=== PATIENT | male | born 1980 | race Caucasian/White ===

== ENCOUNTER 2022-04-26 01:25 | Emergency (ER) | payer OTHER ==
[~2022-04-26] VITALS: Ht 170.2 cm; Wt 61.2 kg
[2022-04-26 02:18] VITALS: BP 94/59
--- NOTE | 2022-04-26 02:20 | NUR ---
BIBS. PAIN & BURNING WHEN URINATING. REPORTS URINE CLOUDY AND FOUL SMELLING. PATIENT IS USING A WHEELCHAIR. AAOX4. PLACED COMFORTABLY IN BED. VITALS CHECKED.
--- NOTE | 2022-04-26 02:49 | NUR ---
URINE SPECIMEN SENT TO LAB
[2022-04-26 03:18] LABS: BILIRUBIN,URINE NEGATIVE (NEGATIVE); COLOR,URINE YELLOW (YELLOW); LEUKOCYTE ESTERASE ,URINE MODERATE (NEGATIVE); NITRITE, URINE POSITIVE (NEGATIVE); PROTEIN,URINE NEGATIVE (NEGATIVE); UGLUCOSE NEGATIVE (NEGATIVE); UROBILINOGEN,URINE 0.2 EU/dL (0.2)
[2022-04-26 03:26] LABS: RBC,URINE 0-2 /HPF (0-2)
[2022-04-26 03:27] LABS: BACTERIA,URINE Many /HPF (None Seen); SQUAMOUS EPITHELIAL CELL,UR Few /HPF (None Seen); WBC,URINE 21-50 /HPF (0-3)
[2022-04-26] MEDS ORDERED: CIPROFLOXACIN HCL 500 MG TABLET PO ONE (03:30)
[2022-04-26] MEDS ORDERED: CIPR500T5 PO (03:30)
[2022-04-26] MEDS ORDERED: CIPROFLOXACIN HCL 500 MG TABLET ONE (03:32)
== END 2022-04-26 03:41 | disposition home or self-care (01) ==
LOC: ER 01:31
DX: N39.0 Urinary tract infection, site not specified (principal); Z60.2 Problems related to living alone; Z79.899 Other long term (current) drug therapy
CPT/HCPCS: 81001; 87086-TC; 87186-TC